=== PATIENT | male | born 1995 | race Caucasian/White ===

== ENCOUNTER 2016-04-25 18:16 | Emergency (ER) | payer SELFPAY ==
[~2016-04-25 18:16] MED LIST: AMOXICILLIN/CLAVULANATE POT 875/125 MG TAB PO SCH
[2016-04-25] MEDS ORDERED: NS 1,000 ML IV ONE (18:41)
--- NOTE | 2016-04-25 18:55 | EDPHY ---
H & P Stated Complaint: Dehydration Time Seen by Provider: 04/25/16 18:30 HPI/ROS: CHIEF COMPLAINT: sore throat, nasal congestion, dog bite HISTORY OF PRESENT ILLNESS: 20-year-old male presents emergency department by ambulance complaining of nasal congestion and sore throat with mild cough x2 days. Patient reports he feels dehydrated as he has had very little to drink because his throat is sore. Patient reports he got a dog bite to his right cheek 2 days ago while breaking up a dog fight between his friends dogs, tetanus is up-to-date, or this dog's rabies vaccination is up-to-date per patient. Patient denies fevers, he reports chills, no neck pain. Patient has not taken any Tylenol or ibuprofen. He denies shortness of breath or chest pain. Patient is a daily smoker. REVIEW OF SYSTEMS: A comprehensive 10 point review of systems is otherwise negative aside from elements mentioned in the history of present illness. Source: Patient Exam Limitations: No limitations - Personal History Current Tetanus/Diphtheria Vaccine: Yes Current Tetanus Diphtheria and Acellular Pertussis (TDAP): Yes - Medical/Surgical History Hx Asthma: No Hx Chronic Respiratory Disease: No Hx Diabetes: No Hx Cardiac Disease: No Hx Renal Disease: No Hx Cirrhosis: No Hx Alcoholism: No Hx HIV/AIDS: No Hx Splenectomy or Spleen Trauma: No Other PMH: None - Social History Smoking Status: Current every day smoker - Physical Exam Exam: Physical Exam Gen: Alert and Oriented, NAD HEENT: PERRL, moist mucous membranes, posterior pharynx with erythema, no exudate, uvula midline, no tonsillar swelling, bilateral nasal turbinates with mild erythema, bilateral TMs normal, opens and closes mouth without difficulty, no mandibular or maxillary tenderness NECK: no meningismus, no anterior cervical lymphadenopathy CV: regular rate and regular rhythm PULM: CTAB, no wheezes ABDOMEN: soft, non tender to palpation, BS present BACK: No CVA tenderness NEURO: Neurologically grossly intact EXTREMITIES: normal appearing SKIN: 0.5 cm laceration/puncture wound to right cheek from dog bite, mild surrounding swelling, no surrounding erythema, scab in place, no draining PSYCH: answers questions appropriately. Constitutional: Initial Vital Signs Temperature (C) 36.7 C 04/25/16 18:24 Heart Rate 81 04/25/16 18:24 Respiratory Rate 12 04/25/16 18:24 Blood Pressure 108/87 H 04/25/16 18:24 O2 Sat (%) 97 04/25/16 18:24 O2 Delivery Mode Room Air Allergies/Adverse Reactions: No Known Allergies Allergy (Unverified 04/25/16 18:36) Home Medications: Medication Instructions Recorded Amoxicillin/Clavulanate Pot 875 mg PO BID #6 tab 04/25/16 [Augmentin 875 MG TAB (*)] Medical Decision Making Procedures: Dog bite to right cheek is 0.5 cm, very superficial, anesthetized with 1% lidocaine with epinephrine, this was cleaned by the emergency department technician support engineer and a Band-Aid was placed. ED Course/Re-evaluation: 20-year-old male who is nontoxic appearing, afebrile, normal room air oxygen saturations, lungs are clear to auscultation, presents with sore throat, nasal congestion and mild cough x2 days. He reports he feels dehydrated as he has had very little to drink to his sore throat. EMS started an IV, 1 L of saline given by them, patient was given another L of saline on arrival to the emergency department. He was given 650 mg of Tylenol and 600 mg of ibuprofen. Patient was given 1 dose of Augmentin and a prescription for 3 days of Augmentin to take for the dog bite. This was filled by the medication assistance program as the patient is homeless and staying in the [facility]. Differential Diagnosis: Diagnosis considered but not limited to viral pharyngitis, strep pharyngitis, influenza, viral syndrome, bronchitis, pneumonia - Data Points Medications Given: Discontinued Medications Sodium Chloride (Ns) 1,000 mls @ 0 mls/hr IV ONCE ONE PRN Reason: Wide Open Stop: 04/25/16 18:42 Last Admin: 04/25/16 18:30 Dose: 1,000 mls Departure - Departure Disposition: Home, Routine, Self-Care Clinical Impression: Viral pharyngitis Dog bite Qualifiers: Qualifier Code: (W54.0XXA) Bitten by dog, initial encounter Condition: Good Instructions: Animal Bite (ED), Pharyngitis (ED) Additional Instructions: Take over the counter Tylenol and ibuprofen. 600 mg of ibuprofen every 8 hours alternating with 650 mg of Tylenol every 8 hours. Rest, drink plenty of fluids. Use a saline nasal rinse, humidifier at night, hot steam showers. Return to the ED for difficulty breathing, chest pain, other concerns. Take Augmentin 875 mg twice a day for 3 days. Return to the emergency department for facial swelling, pus draining from her dog bite, any other questions or concerns. Follow up with [facility] for symptoms that are not improving. Referrals: [facility] [Outside] - As per Instructions Prescriptions: Amoxicillin/Clavulanate Pot [Augmentin 875 MG TAB (*)] 875 mg PO BID #6 tab
[2016-04-25] MEDS ORDERED: AMOXICILLIN/CLAVULANATE POT 875/125 MG TAB PO ONE (19:00)
[2016-04-25] MEDS ORDERED: ACETAMINOPHEN 325 MG TAB PO ONE (19:00)
[2016-04-25] MEDS ORDERED: IBUPROFEN 600 MG TAB PO ONE (19:00)
[2016-04-25 19:36] VITALS: BP 115/69; PULSE 53; RESP 16; TEMP 98.2; O2SAT 98
== END 2016-04-25 19:36 | disposition home or self-care (01) ==
DX: S01.451A Open bite of right cheek and temporomandibular area, initial encounter (principal); J02.8 Acute pharyngitis due to other specified organisms; B97.89 Other viral agents as the cause of diseases classified elsewhere; F17.200 Nicotine dependence, unspecified, uncomplicated; W54.0XXA Bitten by dog, initial encounter